=== PATIENT | male | born 1955 | race Caucasian/White ===

== ENCOUNTER → 2017-08-13 | Outpatient (CLI) | payer BC | END | disposition home or self-care (01) | LOC: C.RDSM 08:00 | PROVIDERS: ATTEND Physical Medicine & Rehabilitation Sports Medicine | DX: M25.511 Pain in right shoulder (principal) ==

== ENCOUNTER → 2017-08-19 | Outpatient (CLI) | payer BC ==
--- NOTE | 2017-08-19 08:48 | DIAGNOSTIC IMAGING REPORT ---
MRI OF THE RIGHT SHOULDER WITHOUT CONTRAST CLINICAL HISTORY: Right shoulder pain. COMPARISON STUDY: Right shoulder radiographs August 13, 2017. TECHNIQUE: Utilizing a 1.5 Korina magnet and dedicated coil, multiplanar, multiecho imaging of the right shoulder was performed without intravenous or intra-articular contrast. FINDINGS: Foci of susceptibility artifact adjacent to the right shoulder are postsurgical. Alignment of the right shoulder is anatomic. There is no marrow edema or marrow replacement. There is mild glenohumeral joint arthrosis and moderate acromioclavicular joint arthrosis. There is no fracture. Tendinopathy of distal supraspinatus is noted. There is no full-thickness tear of supraspinatus. There is fluid signal tracking between supraspinatus and infraspinatus which suggests a tiny full-thickness infraspinatus tear, located 2.3 cm proximal to its insertion. There is also a partial thickness articular surface tear of distal infraspinatus. Subscapularis and teres minor are intact. Long head of the biceps tendon is intact. The posterior superior glenoid labrum is diminutive and contains abnormal signal. IMPRESSION: 1. Tiny full-thickness tear/perforation of infraspinatus and additional partial thickness articular surface tear of distal infraspinatus. Tendinopathy of supraspinatus with no full-thickness tear of supraspinatus. No tendon retraction or muscular atrophy. 2. Diminutive posterior superior glenoid labrum which contains abnormal signal. This could reflect tear or postsurgical change. 3. Moderate osteoarthritis of the right acromioclavicular joint. Electronically signed by: Heriberto Mercedes M.D. 08/19/2017 8:47 AM Dictated Date/Time: 08/19/2017 8:32 AM
== END | disposition home or self-care (01) ==
LOC: C.MRI 07:35
PROVIDERS: ATTEND Physical Medicine & Rehabilitation Sports Medicine
DX: M25.511 Pain in right shoulder (principal); S46.011A Strain of muscle(s) and tendon(s) of the rotator cuff of right shoulder, initial encounter; X58.XXXA Exposure to other specified factors, initial encounter; M75.81 Other shoulder lesions, right shoulder; M19.011 Primary osteoarthritis, right shoulder; R93.7 Abnormal findings on diagnostic imaging of other parts of musculoskeletal system

== ENCOUNTER → 2017-12-13 | Day surgery (SDC) | payer BC, OTHER ==
[2017-12-03 09:21] VITALS: Ht 180.3 cm; Wt 72.7 kg
[~2017-12-13] VITALS: Ht 180.3 cm; Wt 72.7 kg
[~2017-12-13] MED LIST: CHOL2000 PO; CYAN10005 PO; IBUP-1050 PO; LIDOCAINE HCL 2% 2 ML VIAL (20MG/ML) ONE; MIDAZOLAM HCL 1 MG/ML 2ML VIAL ONE; ONDANSETRON INJ 2 MG/ML 2 ML VIAL ONE; PROPOFOL IV EMULSION 10 MG/ML 20 ML VIAL IV ONE; SODIUM CHLORIDE 0.9% 500ML 500 ML IV ONE
--- NOTE | 2017-12-13 10:18 | Endo History and Physical ---
History & Physical Date of Service: Dec 13, 2017. Chief Complaint: screening,family history of colon cancer-mother Referring Physician: Dr. Raphael Gamez History of Present Illness 62 yo CM who presents for colonoscopy secondary to family history of colon cancer (Mother). Past Surgical History Hx Cardiac Surgery: No Hx Internal Defibrillator: No Hx Pacemaker: No Hx Abdominal Surgery: No Hx of Implantable Prosthesis: No Hx Post-Op Nausea and Vomiting: No Hx Cancer Surgery: No Hx Thoracic Surgery: No Hx Orthopedic: Yes (LT KNEE X2, RT SHOULDER) Hx Urinary Tract Surgery: No Family History Colon CA Social History Smoking Status: Never Smoker Hx Substance Use: No Hx Alcohol Use: Yes (1-2 GLASSES A COUPLE TIMES/WEEK) Allergies Coded Allergies: No Known Allergies (Verified , 12/13/17) Current Medications Reported Home Medications Medications Dose Route/Sig Max Daily Dose Days Date Category Advil (Ibuprofen) 200 Mg Tab 400-600 Mg PO Q6H PRN 12/03/17 Reported Vitamin B-12 (Cyanocobalamin) 1,000 Mcg Tab 1,000 Mcg PO DAILY 12/03/17 Reported Vitamin D3 (Cholecalciferol) 2,000 Unit Cap 1 Cap PO DAILY 12/03/17 Reported Vital Signs Weight (Kilograms): 72.73 Height (Feet): 5 Height (Inches): 11 Date Time Temp Pulse Resp B/P (MAP) Pulse Ox O2 Delivery O2 Flow Rate FiO2 12/13/17 09:17 36.4 62 18 144/84 (104) 100 Room Air Physical Exam General Appearance: WD/WN, no apparent distress Respiratory/Chest: Auscultation: breath sounds normal Cardiovascular: Heart Auscultation: RRR Abdomen: Bowel Sounds: normal Inspection & Palpation: soft, non-distended, no tenderness, guarding & rebound Assessment and Plan Assessment: 62 yo CM who presents for colonoscopy secondary to family history of colon cancer (Mother). Plan: Proceed with colonoscopy.
--- NOTE | 2017-12-13 10:47 | GI REPORT ---
Procedure Date: 12/13/2017 10:23 AM Procedure: Colonoscopy Indications: Family history of colon cancer in a first-degree relative Medicines: Monitored Anesthesia Care Complications: No immediate complications. Estimated Blood Loss: Estimated blood loss: none. Procedure: Pre-Anesthesia Assessment: - Prior to the procedure, a History and Physical was performed, and patient medications and allergies were reviewed. The patient's tolerance of previous anesthesia was also reviewed. The risks and benefits of the procedure and the sedation options and risks were discussed with the patient. All questions were answered, and informed consent was obtained. Prior Anticoagulants: The patient has taken no previous anticoagulant or antiplatelet agents. ASA Grade Assessment: I - A normal, healthy patient. After reviewing the risks and benefits, the patient was deemed in satisfactory condition to undergo the procedure. After I obtained informed consent, the scope was passed under direct vision. Throughout the procedure, the patient's blood pressure, pulse, and oxygen saturations were monitored continuously. The scope was introduced through the anus and advanced to the terminal ileum. The colonoscopy was performed without difficulty. The patient tolerated the procedure well. The quality of the bowel preparation was good. The terminal ileum, ileocecal valve, appendiceal orifice, and rectum were photographed. Findings: The perianal and digital rectal examinations were normal. Non-bleeding internal hemorrhoids were found during retroflexion. The hemorrhoids were small. Impression: - Non-bleeding internal hemorrhoids. - No specimens collected. Recommendation: - Resume previous diet. - Continue present medications. - Repeat colonoscopy in 5 years for surveillance. - Return to primary care physician as previously scheduled. Roque Parrish, 12/13/2017 10:47:13 AM This report has been signed electronically. Note Initiated On: 12/13/2017 10:23 AM I attest to the content of the Intraoperative Record and orders documented therein, exceptions below
--- NOTE | 2017-12-13 10:51 | Discharge Instructions ---
Endoscopy Patient Instructions Date / Procedure(s) Performed Dec 13, 2017. Colonoscopy Allergy Information Coded Allergies: No Known Allergies (Verified , 12/13/17) Discharge Date / Findings Dec 13, 2017. Internal hemorrhoids Medication Instructions Stopped Medication(s): stopped supplements on Saturday OK to resume all medications today as prescribed Reported Home Medications Medications Dose Route/Sig Max Daily Dose Days Date Category Advil (Ibuprofen) 200 Mg Tab 400-600 Mg PO Q6H PRN 12/03/17 Reported Vitamin B-12 (Cyanocobalamin) 1,000 Mcg Tab 1,000 Mcg PO DAILY 12/03/17 Reported Vitamin D3 (Cholecalciferol) 2,000 Unit Cap 1 Cap PO DAILY 12/03/17 Reported Provider Instructions Activity Restrictions - No exercising or heavy lifting for 24 hours. - Do not drink alcohol the day of the procedure. - Do not drive a car or operate machinery until the day after the procedure. - Do not make any important decisions or sign important papers in 24 hours after the procedure. Following Day: - Return to full activity which may include returning to work/school. Diet Start your diet with liquids and light foods (jello, soup, juice, toast). Then eat your usual diet if not nauseated. Treatment For Common After Affects For mild abdominal pain, bloating, or excessive gas: - Rest - Eat lightly - Lie on right side Follow-Up Information Follow-up with Dr. Raphael Gamez as scheduled Anesthesia Information What You Should Know You have had a procedure that required some medicine to reduce anxiety and discomfort. This treatment is called moderate sedation. After receiving the treatment, you may be sleepy, but you will be able to breathe on your own. The effects of the treatment may last for several hours. Follow these instructions along with Activity/Diet recommendations noted above: * Do NOT do anything where dizziness or clumsiness would be dangerous. * Rest quietly at home today, then you can be up and about tomorrow. * Have a responsible person stay with you the rest of today. * You may have had an I.V. today. If so, you may take the dressing off later today. Recommendations Call your doctor if: * Trouble breathing * Continuous vomiting for more than 24 hours * Temperature above 101 degrees * Severe abdominal pain or bloating * Pain not relieved by pain medicine ordered * There is increased drainage or redness from any incision * A large amount of rectal bleeding greater than 2-3 tablespoons. (If you had a polyp/s removed or have hemorrhoids, a small amount of blood - from the rectum is to be expected.) * You have any unanswered questions or concerns. IN THE EVENT OF A SERIOUS EMERGENCY, GO TO THE NEAREST EMERGENCY ROOM Your discharge instructions were prepared by provider Roque Parrish. Patient Instructions Signature Page Dakota Salinas Patient (or Guardian) Signature/Date: I have read and understand the instructions given to me by my caregivers. Caregiver/RN/Doctor Signature/Date: The above-named patient and/or guardian has received patient instructions on this date. + Original Patient Signature Page (only) stays with chart. Please make copy for patient.
--- NOTE | 2017-12-13 11:07 | Anesthesiology Progress Note ---
Anesthesia Post Op Note Date & Time Dec 13, 2017 at 11:07 Vital Signs Pain Intensity: 0 Vital Signs Past 12 Hours Date Time Temp Pulse Resp B/P (MAP) Pulse Ox O2 Delivery O2 Flow Rate FiO2 12/13/17 10:53 56 20 111/67 (82) 99 Room Air 12/13/17 09:17 36.4 62 18 144/84 (104) 100 Room Air Notes Mental Status: alert / awake / arousable, participated in evaluation Pt Amnestic to Procedure: Yes Nausea / Vomiting: adequately controlled Pain: adequately controlled Airway Patency, RR, SpO2: stable & adequate BP & HR: stable & adequate Hydration State: stable & adequate Anesthetic Complications: no major complications apparent
[2017-12-13 11:25] VITALS: BP 116/72; PULSE 64; O2SAT 100
== END | disposition home or self-care (01) ==
LOC: C.GI 08:58
PROVIDERS: ATTEND Internal Medicine
DX: Z12.11 Encounter for screening for malignant neoplasm of colon (principal); Z80.0 Family history of malignant neoplasm of digestive organs; K64.8 Other hemorrhoids; Z98.890 Other specified postprocedural states

== ENCOUNTER → 2018-02-24 | Outpatient (CLI) | payer OTHER ==
[~2018-02-24] MED LIST changes: -LIDOCAINE HCL 2% 2 ML VIAL (20MG/ML) ONE; -MIDAZOLAM HCL 1 MG/ML 2ML VIAL ONE; -ONDANSETRON INJ 2 MG/ML 2 ML VIAL ONE; -PROPOFOL IV EMULSION 10 MG/ML 20 ML VIAL IV ONE; -SODIUM CHLORIDE 0.9% 500ML 500 ML IV ONE
== END | disposition home or self-care (01) ==
LOC: C.RDSM 18:47
PROVIDERS: ATTEND Physical Medicine & Rehabilitation Sports Medicine
DX: M25.511 Pain in right shoulder (principal)